=== PATIENT | male | born 1945 | race Caucasian/White ===

== ENCOUNTER 2022-06-07 05:46 | Inpatient (IN) | payer MEDICARE, OTHER ==
[2022-06-02 15:36] VITALS: BMI 27.9
[2022-06-07] MEDS ORDERED: Fentanyl 250 MCG/5 ML VIAL ONE (06:23)
[2022-06-07] MEDS ORDERED: Midazolam HCl 5 mg/5 ml Vial ONE (06:24)
[2022-06-07] MEDS ORDERED: Lidocaine 1% MPF 2 ML VIAL ONE (06:39)
[2022-06-07] MEDS ORDERED: Bupivacaine HCl 0.5%/Epinephrine 1:200,000/PF 30 ml Vial ONE (06:48)
[2022-06-07] MEDS ORDERED: Albumin 5% 500 ML ONE (06:48)
[2022-06-07] MEDS ORDERED: Dexamethasone 4 mg/ml Vial ONE (06:48)
[2022-06-07] MEDS ORDERED: CEFAZOLIN 2 GM VIAL ONE (07:10)
[2022-06-07] MEDS ORDERED: Sodium Chloride 0.9% 100 ML ONE (07:10)
[2022-06-07 07:17] LABS: Hemoglobin 15.4 g/dL (14.0-18.0); Mean Corpuscular HGB CONC 32.3 g/dL (32.0-36.0); Mean Corpuscular Hemoglobin 30.8 pg (27.0-31.0); Mean Corpuscular Volume 95.1 fl (78.0-98.0); Mean Platelet Volume 7.6 fL (7.4-10.4); Platelet Count 168 10x3/uL (130-400); RBC Distribution Width 12.8 % (11.5-14.5); Red Blood Cell (RBC) Count 5.02 mill/uL (4.70-6.10); White Blood Cell (WBC) Count 5.2 10x3/uL (4.8-10.8)
[2022-06-07] MEDS ORDERED: Vancomycin 1 GM VIAL ONE (07:24)
[2022-06-07] MEDS ORDERED: Lidocaine 2% PF 100 mg/5 ml Syringe ONE (07:24)
[2022-06-07] MEDS ORDERED: Papaverine 60 MG/2 ML VIAL ONE (07:24)
[2022-06-07] MEDS ORDERED: Calcium Chloride 1 GM/10 ML Abboject SYRINGE ONE (07:24)
[2022-06-07] MEDS ORDERED: Vecuronium 10 MG VIAL ONE (07:24)
[2022-06-07] MEDS ORDERED: Aminocaproic Acid 5 GM/20 ML VIAL ONE (07:24)
[2022-06-07] MEDS ORDERED: Potassium Chloride 60 MEQ/30 ML VIAL ONE (07:24)
[2022-06-07] MEDS ORDERED: Esmolol 100 MG/10 ML VIAL ONE (07:24)
[2022-06-07] MEDS ORDERED: Heparin 30,000 units/30 ml VIAL ONE (07:24)
[2022-06-07] MEDS ORDERED: Protamine Sulfate 50 MG/5 ML VIAL ONE (07:24)
[2022-06-07] MEDS ORDERED: Heparin 5,000 UNITS/ML VIAL ONE (07:24)
[2022-06-07] MEDS ORDERED: Sodium Bicarb 50 MEQ/50 ML VIAL ONE (07:24)
[2022-06-07] MEDS ORDERED: PROPOFOL 200 MG/20 ML VIAL ONE (07:24)
[2022-06-07] MEDS ORDERED: Cardioplegic Soln 1,000 ML BAG ONE (07:24)
[2022-06-07] MEDS ORDERED: Mannitol 12.5 GM/50 ML ONE (07:24)
[2022-06-07] MEDS ORDERED: Magnesium 5 GM/10 ML VIAL ONE (07:24)
[2022-06-07] MEDS ORDERED: Thrombin 5000 UNITS/5 ML VIAL ONE (07:24)
[2022-06-07] MEDS ORDERED: Heparin 10,000 UNITS/1 ML VIAL 30,000 UNITS in Sodium Chloride 0.9% 1,000 ML FS SCH (07:45)
[2022-06-07 08:01] LABS: Anion Gap 11 mmol/L (10-20); BUN (Urea Nitrogen) 18 mg/dL (8.4-25.7); Calc. Creatinine Clearance 92 mL/min (70-130); Carbon Dioxide 23 mmol/L (23-31); Chloride 112 mmol/L (98-107); Potassium 3.9 mmol/L (3.5-5.1); Sodium 142 mmol/L (136-145)
[2022-06-07 08:02] LABS: Calcium 8.6 mg/dL (7.8-10.44); Estimated GFR 90; Glucose 105 mg/dL (83-110)
[2022-06-07] MEDS ORDERED: Heparin 10,000 UNITS/ 10 ML VIAL ONE (08:24)
[2022-06-07] MEDS ORDERED: Amiodarone 150 MG/3 ML VIAL ONE ×2 (09:19→09:20)
[2022-06-07] MEDS ORDERED: Amiodarone 450 MG, Admixture Fee 1 EACH in Dextrose 5% in Water 250 ML IVPB SCH (09:30)
[2022-06-07] MEDS ORDERED: hydrALAZINE 20 MG/ML VIAL SLOW IVP PRN (10:44)
[2022-06-07] MEDS ORDERED: Bisacodyl 5 MG TAB PO PRN (10:44)
[2022-06-07] MEDS ORDERED: Hetastarch 6% 500 ML 500 ML IVPB PRN (10:44)
[2022-06-07] MEDS ORDERED: Potassium Chloride 20 MEQ/100 ML PREMIX BAG IVPB PRN (10:44)
[2022-06-07] MEDS ORDERED: Acetaminophen 325 MG TAB PO PRN (10:44)
[2022-06-07] MEDS ORDERED: fentaNYL 50 mcg/mL 1 mL Vial SLOW IVP PRN ×2 (10:44)
[2022-06-07] MEDS ORDERED: Morphine 2 MG/ML VIAL SLOW IVP PRN (10:44)
[2022-06-07] MEDS ORDERED: Bisacodyl 10 MG SUPP PR PRN (10:44)
[2022-06-07] MEDS ORDERED: Mag-Al 1200 mg/1200 mg/30 ML UDCUP PO PRN (10:44)
[2022-06-07] MEDS ORDERED: niCARdipine 25 MG in Sodium Chloride 0.9% 250 ML 250 ML IVPB PRN (10:44)
[2022-06-07] MEDS ORDERED: Guaifenesin DM 100-10/5 ML UDCUP PO PRN (10:44)
[2022-06-07] MEDS ORDERED: Ipratropium/Albuterol 3 ML NEB NEB PRN (10:44)
[2022-06-07] MEDS ORDERED: NOREPINEPHRINE 8 MG/250 ML-D5W 250 ML IVPB PRN (10:44)
[2022-06-07] MEDS ORDERED: Ondansetron PF 4 MG/2 ML Vial IVP PRN (10:44)
[2022-06-07 10:53] LABS: Actual Bicarbonate (HCO3a) 19.2 mEq/L (22-28); Base Excess (BEa) -6.4 mEq/L (-2.0 to +3.0); CO2 Tension 38.2 mmHg (35.0-45.0); Calcium, Ionized (arterial) 1.25 mmol/L (1.12-1.30); Carboxyhemoglobin (COHb) 0.5 gm% (0.0-3.0); Hemoglobin (Hb) 13.7 g/dL (14.0-18.0); O2 Tension (PaO2), arterial 82.3 mmHg (> 70.0); Potassium - ABG Lab 4.19 mmol/L (3.70-5.30); pH, Arterial 7.32 (7.35-7.45)
[2022-06-07 10:54] LABS: Puncture Site Arterial Line
[2022-06-07] MEDS ORDERED: Dextrose 50% Abboject 50 ML SYRINGE SLOW IVP PRN (11:00)
[2022-06-07] MEDS ORDERED: Dextrose 5% in Water 1,000 ML IV PRN (11:00)
[2022-06-07] MEDS ORDERED: HUMULIN R 100 UNITS in Sodium Chloride 0.9% 100 ML IVPB SCH (11:00)
[2022-06-07 11:01] LABS: #Basophils 0.1 thou/uL (0.0-0.2); #Eosinphils 0.1 thou/uL (0.0-0.7); #Lymphocytes 1.3 thou/uL (1.20-3.40); #Monocytes 0.8 thou/uL (0.11-0.59); #Neutrophils 9.2 thou/uL (1.40-6.50); %Basophils 0.4 % (0.0-1.0); %Eosinophils 0.7 % (0.0-10.0); %Lymphocytes 11.7 % (21.0-51.0); %Monocytes 6.6 % (0.0-10.0); %Neutrophils 80.6 % (42.0-75.0); Hemoglobin 13.3 g/dL (14.0-18.0); Mean Corpuscular HGB CONC 33.3 g/dL (32.0-36.0); Mean Corpuscular Hemoglobin 31.7 pg (27.0-31.0); Mean Corpuscular Volume 95.2 fl (78.0-98.0); Mean Platelet Volume 7.2 fL (7.4-10.4); Platelet Count 136 10x3/uL (130-400); RBC Distribution Width 12.6 % (11.5-14.5); White Blood Cell (WBC) Count 11.5 10x3/uL (4.8-10.8)
[2022-06-07 11:13] LABS: INR-International Normal Ratio 1.2; PTT 29.6 sec (22.9-36.1); Prothrombin Time 16.1 sec (12.0-14.7)
[2022-06-07] MEDS: Insulin Regular 300 UNITS/3 ML VIAL SC PRN ×2 (11:17→15:53)
[2022-06-07] MEDS: Ketorolac Tromethamine 30 MG/ML VIAL IVP SCH ×2 (11:17→18:09)
[2022-06-07 11:19] LABS: Anion Gap 12 mmol/L (10-20); BUN (Urea Nitrogen) 15 mg/dL (8.4-25.7); Calc. Creatinine Clearance 96 mL/min (70-130); Calcium 8.7 mg/dL (7.8-10.44); Carbon Dioxide 19 mmol/L (23-31); Chloride 115 mmol/L (98-107); Estimated GFR 91; Glucose 153 mg/dL (83-110); Potassium 4.3 mmol/L (3.5-5.1); Sodium 142 mmol/L (136-145)
[2022-06-07] MEDS: Potassium Chloride 20 MEQ in Lactated Ringer's 1,000 ML IV SCH (11:53)
[2022-06-07] MEDS: traMADol HCl 50 MG TAB PO PRN ×2 (14:13→22:16)
[2022-06-07] MEDS: CEFAZOLIN 2 GM in Sodium Chloride 0.9% 100 ML IVPB SCH (15:35)
[2022-06-07 15:56] LABS: Hemoglobin 14.1 g/dL (14.0-18.0)
[2022-06-07 16:26] LABS: Potassium 4.2 mmol/L (3.5-5.1)
[2022-06-07] MEDS: Famotidine/PF 20 mg/2ml Vial SLOW IVP SCH (20:06)
[2022-06-07] MEDS ORDERED: Atorvastatin Calcium 20 MG TAB PO SCH (21:00)
[2022-06-08] MEDS: Ketorolac Tromethamine 30 MG/ML VIAL IVP SCH ×4 (00:01→17:08)
[2022-06-08] MEDS: Insulin Regular 300 UNITS/3 ML VIAL SC PRN (00:06)
[2022-06-08 04:25] LABS: #Lymphocytes 0.6 thou/uL (1.20-3.40); #Monocytes 1.4 thou/uL (0.11-0.59); %Basophils 0.2 % (0.0-1.0); %Eosinophils 0.1 % (0.0-10.0); %Lymphocytes 5.9 % (21.0-51.0); %Monocytes 14.2 % (0.0-10.0); %Neutrophils 79.5 % (42.0-75.0); Hemoglobin 12.5 g/dL (14.0-18.0); Mean Corpuscular HGB CONC 33.8 g/dL (32.0-36.0); Mean Corpuscular Hemoglobin 31.8 pg (27.0-31.0); Mean Corpuscular Volume 94.3 fl (78.0-98.0); Mean Platelet Volume 7.4 fL (7.4-10.4); Platelet Count 144 10x3/uL (130-400); RBC Distribution Width 12.6 % (11.5-14.5); Red Blood Cell (RBC) Count 3.93 mill/uL (4.70-6.10); White Blood Cell (WBC) Count 10.1 10x3/uL (4.8-10.8)
[2022-06-08 04:43] LABS: Anion Gap 11 mmol/L (10-20); BUN (Urea Nitrogen) 16 mg/dL (8.4-25.7); Calc. Creatinine Clearance 94 mL/min (70-130); Calcium 7.9 mg/dL (7.8-10.44); Carbon Dioxide 20 mmol/L (23-31); Chloride 112 mmol/L (98-107); Estimated GFR 90; Glucose 116 mg/dL (83-110); Potassium 4.2 mmol/L (3.5-5.1); Sodium 139 mmol/L (136-145)
[2022-06-08] MEDS: traMADol HCl 50 MG TAB PO PRN ×2 (05:09→17:44)
[2022-06-08] MEDS: CEFAZOLIN 2 GM in Sodium Chloride 0.9% 100 ML IVPB SCH ×2 (06:25)
[2022-06-08] MEDS: Famotidine/PF 20 mg/2ml Vial SLOW IVP SCH (08:29)
[2022-06-08] MEDS: Magnesium 2 GM/50 ML(in water) 2 GM in Premix Bag 1 BAG IVPB SCH (08:29)
[2022-06-08] MEDS: Potassium Chloride 20 MEQ in Lactated Ringer's 1,000 ML IV SCH (08:29)
[2022-06-08] MEDS ORDERED: Aspirin 325 MG TAB PO SCH (09:00)
[2022-06-08] MEDS ORDERED: Insulin Glargine 30 UNITS/0.3 ML VIAL SC PRN (10:46)
[2022-06-08] MEDS ORDERED: Furosemide 40 MG TAB PO SCH (12:00)
[2022-06-08] MEDS ORDERED: Potassium Chloride 10 MEQ TAB PO SCH (12:15)
[2022-06-08] MEDS: Furosemide 40 MG TAB PO SCH (12:26)
[2022-06-08] MEDS: Potassium Chloride 10 MEQ TAB PO SCH (12:26)
[2022-06-08] MEDS ORDERED: Zolpidem Tartrate 5 MG TAB PO PRN (14:04)
[2022-06-08] MEDS ORDERED: Nitroglycerin 0.4 MG TAB (25 Tab Bottle) SL PRN (14:04)
[2022-06-08] MEDS ORDERED: diphenhydrAMINE 25 MG CAP PO PRN (14:04)
[2022-06-08] MEDS ORDERED: Milk Of Magnesia 30 ML UDCUP PO PRN (14:04)
[2022-06-08] MEDS ORDERED: Mineral Oil ENEMA PR PRN (14:04)
[2022-06-08] MEDS: Atorvastatin Calcium 40 MG TAB PO SCH (20:06)
[2022-06-09] MEDS: Ketorolac Tromethamine 30 MG/ML VIAL IVP SCH ×4 (00:17→17:42)
[2022-06-09] MEDS: traMADol HCl 50 MG TAB PO PRN (00:28)
[2022-06-09] MEDS: Amiodarone 450 MG, Admixture Fee 1 EACH in Dextrose 5% in Water 250 ML IVPB SCH ×2 (05:33→11:54)
[2022-06-09] MEDS: Potassium Chloride 20 MEQ in Lactated Ringer's 1,000 ML IV SCH (06:13)
[2022-06-09] MEDS: Aspirin 325 mg Enteric Coated Tablet PO SCH (08:31)
[2022-06-09] MEDS: Potassium Chloride 10 MEQ TAB PO SCH (08:32)
[2022-06-09] MEDS: Tamsulosin HCl 0.4 MG CAP PO SCH (08:32)
[2022-06-09] MEDS: Furosemide 40 MG TAB PO SCH (08:32)
[2022-06-09] MEDS: Magnesium 2 GM/50 ML(in water) 2 GM in Premix Bag 1 BAG IVPB SCH (08:42)
[2022-06-09] MEDS ORDERED: Sodium Chloride 0.9% 500 ML IV SCH (10:30)
[2022-06-09] MEDS ORDERED: Digoxin 0.5 MG/2 ML AMP SLOW IVP SCH (10:30)
[2022-06-09 11:49] LABS: Analyzer IN Cardio OR; Base Excess (BEa) -3.8 mEq/L (-2.0 to +3.0); CO2 Tension 42.3 mmHg (35.0-45.0); Calcium, Ionized (arterial) 1.09 mmol/L (1.12-1.30); Carboxyhemoglobin (COHb) 0.5 gm% (0.0-3.0); Hemoglobin (Hb) 13.3 g/dL (14.0-18.0); Potassium - ABG Lab 4.16 mmol/L (3.70-5.30); pH, Arterial 7.33 (7.35-7.45)
[2022-06-09 11:49] LABS: Actual Bicarbonate (HCO3a) 21.8 mEq/L (22-28); Analyzer IN Cardio OR; Base Excess (BEa) -2.5 mEq/L (-2.0 to +3.0); CO2 Tension 36.5 mmHg (35.0-45.0); Carboxyhemoglobin (COHb) 0.6 gm% (0.0-3.0); Hemoglobin (Hb) 13.9 g/dL (14.0-18.0); O2 Tension (PaO2), arterial 281.2 mmHg (> 70.0); Potassium - ABG Lab 3.63 mmol/L (3.70-5.30)
[2022-06-09 11:50] LABS: Actual Bicarbonate (HCO3a) 23.3 mEq/L (22-28); Analyzer IN Cardio OR; Base Excess (BEa) -2.8 mEq/L (-2.0 to +3.0); CO2 Tension 46.1 mmHg (35.0-45.0); Calcium, Ionized (arterial) 1.02 mmol/L (1.12-1.30); Hemoglobin (Hb) 10.8 g/dL (14.0-18.0); O2 Tension (PaO2), arterial 391.1 mmHg (> 70.0); Potassium - ABG Lab 5.28 mmol/L (3.70-5.30); pH, Arterial 7.32 (7.35-7.45)
[2022-06-09 11:50] LABS: Actual Bicarbonate (HCO3a) 24.2 mEq/L (22-28); Analyzer IN Cardio OR; Base Excess (BEa) -2.1 mEq/L (-2.0 to +3.0); CO2 Tension 48.1 mmHg (35.0-45.0); Calcium, Ionized (arterial) 0.99 mmol/L (1.12-1.30); Carboxyhemoglobin (COHb) 0.3 gm% (0.0-3.0); Hemoglobin (Hb) 10.5 g/dL (14.0-18.0); O2 Tension (PaO2), arterial 438.2 mmHg (> 70.0); Potassium - ABG Lab 5.12 mmol/L (3.70-5.30); pH, Arterial 7.32 (7.35-7.45)
[2022-06-09 11:50] LABS: Actual Bicarbonate (HCO3v) 26 mEq/L (22-28); Analyzer IN Cardio OR; Base Excess -0.7 mEq/L (-2.0 to +3.0); Chloride (VBG) 110 mmol/L (98-106); Hemoglobin (Hb) 10.5 g/dL (12.6-17.4); Potassium (VBG) 5.16 mmol/L (3.70-5.30); Sodium 136.5 mmol/L (133-146)
[2022-06-09 11:51] LABS: Puncture Site Arterial Line
[2022-06-09 11:51] LABS: Actual Bicarbonate (HCO3a) 20.7 mEq/L (22-28); Analyzer IN Cardio OR; Base Excess (BEa) -4.4 mEq/L (-2.0 to +3.0); CO2 Tension 38.6 mmHg (35.0-45.0); Calcium, Ionized (arterial) 1.31 mmol/L (1.12-1.30); Carboxyhemoglobin (COHb) 0.2 gm% (0.0-3.0); Hemoglobin (Hb) 12.7 g/dL (14.0-18.0); O2 Tension (PaO2), arterial 218.9 mmHg (> 70.0); Potassium - ABG Lab 4.46 mmol/L (3.70-5.30); pH, Arterial 7.35 (7.35-7.45)
[2022-06-09 11:51] LABS: Puncture Site Arterial Line
[2022-06-09 11:52] LABS: Puncture Site Arterial Line
[2022-06-09 11:53] LABS: Puncture Site Arterial Line
[2022-06-09 11:54] LABS: Puncture Site Arterial Line
[2022-06-09] MEDS: Atorvastatin Calcium 40 MG TAB PO SCH (20:31)
[2022-06-10] MEDS: Potassium Chloride 20 MEQ in Lactated Ringer's 1,000 ML IV SCH (00:57)
[2022-06-10] MEDS: Ketorolac Tromethamine 30 MG/ML VIAL IVP SCH ×3 (00:58→13:59)
[2022-06-10] MEDS: Amiodarone 450 MG, Admixture Fee 1 EACH in Dextrose 5% in Water 250 ML IVPB SCH ×2 (04:10→21:04)
[2022-06-10] MEDS: Aspirin 325 mg Enteric Coated Tablet PO SCH (09:11)
[2022-06-10] MEDS: Tamsulosin HCl 0.4 MG CAP PO SCH (09:11)
[2022-06-10] MEDS: Furosemide 40 MG TAB PO SCH (09:11)
[2022-06-10] MEDS: Potassium Chloride 10 MEQ TAB PO SCH (09:11)
[2022-06-10] MEDS ORDERED: Digoxin 0.5 MG/2 ML AMP SLOW IVP SCH (16:30)
[2022-06-10] MEDS: Atorvastatin Calcium 40 MG TAB PO SCH (20:42)
[2022-06-11] MEDS: Amiodarone 200 MG TAB PO SCH ×2 (09:44→20:43)
[2022-06-11] MEDS: Tamsulosin HCl 0.4 MG CAP PO SCH (09:45)
[2022-06-11] MEDS: Aspirin 325 mg Enteric Coated Tablet PO SCH (09:45)
[2022-06-11] MEDS: Metoprolol Tartrate 25 MG TAB PO SCH ×2 (09:46→20:43)
[2022-06-11] MEDS: Furosemide 40 MG TAB PO SCH (09:46)
[2022-06-11] MEDS: Potassium Chloride 10 MEQ TAB PO SCH (09:46)
[2022-06-11] MEDS: Amiodarone 450 MG, Admixture Fee 1 EACH in Dextrose 5% in Water 250 ML IVPB SCH (13:29)
[2022-06-11] MEDS: Atorvastatin Calcium 40 MG TAB PO SCH (20:43)
[2022-06-12] MEDS: Amiodarone 450 MG, Admixture Fee 1 EACH in Dextrose 5% in Water 250 ML IVPB SCH (06:07)
[2022-06-12] MEDS: Tamsulosin HCl 0.4 MG CAP PO SCH (08:47)
[2022-06-12] MEDS: Metoprolol Tartrate 25 MG TAB PO SCH ×2 (08:47→21:11)
[2022-06-12] MEDS: Aspirin 325 mg Enteric Coated Tablet PO SCH (08:48)
[2022-06-12] MEDS: Amiodarone 200 MG TAB PO SCH ×2 (08:48→21:11)
[2022-06-12] MEDS: Furosemide 40 MG TAB PO SCH (08:48)
[2022-06-12] MEDS: Potassium Chloride 10 MEQ TAB PO SCH (08:48)
[2022-06-12] MEDS: traMADol HCl 50 MG TAB PO PRN (21:08)
[2022-06-12] MEDS: Atorvastatin Calcium 40 MG TAB PO SCH (21:10)
[2022-06-13] MEDS: Amiodarone 200 MG TAB PO SCH (08:29)
[2022-06-13] MEDS: Potassium Chloride 10 MEQ TAB PO SCH (08:30)
[2022-06-13] MEDS: Tamsulosin HCl 0.4 MG CAP PO SCH (08:30)
[2022-06-13] MEDS: Furosemide 40 MG TAB PO SCH (08:30)
[2022-06-13] MEDS: Aspirin 325 mg Enteric Coated Tablet PO SCH (08:30)
[2022-06-13] MEDS: Metoprolol Tartrate 25 MG TAB PO SCH (08:30)
[2022-06-13 08:41] VITALS: BP 113/55; TEMP 97.5
[2022-06-13] MEDS ORDERED: Amiodarone 200 MG TAB PO SCH (21:00)
== END 2022-06-13 10:46 | disposition home or self-care (01) | DRG 236 ==
LOC: SURG A 05:46 → CCU 10:04 → EDSTATUS 12:52 → 2NO 06-09 13:33
PROVIDERS: ADMIT Thoracic Surgery (Cardiothoracic Vascular Surgery); ATTEND Thoracic Surgery (Cardiothoracic Vascular Surgery)
PROC: 02100Z9 Bypass Coronary Artery, One Artery from Left Internal Mammary, Open Approach (ICD-10-PCS; principal; 2022-06-07)
PROC: 021209W Bypass Coronary Artery, Three Arteries from Aorta with Autologous Venous Tissue, Open Approach (ICD-10-PCS; 2022-06-07)
PROC: 06BQ4ZZ Excision of Left Saphenous Vein, Percutaneous Endoscopic Approach (ICD-10-PCS; 2022-06-07)
PROC: 5A1221Z Performance of Cardiac Output, Continuous (ICD-10-PCS; 2022-06-07)
PROC: 02L70ZK Occlusion of Left Atrial Appendage, Open Approach (ICD-10-PCS; 2022-06-07)
DX: I25.118 Atherosclerotic heart disease of native coronary artery with other forms of angina pectoris (principal); E78.5 Hyperlipidemia, unspecified; N40.0 Benign prostatic hyperplasia without lower urinary tract symptoms; K40.90 Unilateral inguinal hernia, without obstruction or gangrene, not specified as recurrent; K21.9 Gastro-esophageal reflux disease without esophagitis; I48.91 Unspecified atrial fibrillation; Z79.82 Long term (current) use of aspirin; Z79.899 Other long term (current) drug therapy
CPT/HCPCS: 36416; 71045; 80048; 82805; 85025; 85027; 85610; 85730; 86850; 86900; 86901; 93005; 93010; 93798; 94002; 94150; C1751; J0282; J1100; J1160; J1642; J1644; J1815; J1885; J2001; J2150; J2250; J2405; J2440; J2704; J2720; J3010; J3370; J3475; J3480; J3490; J7030; J7070; J7120; P9045; S0017; S0028